=== PATIENT | male | born 1975 | race Caucasian/White ===

== ENCOUNTER 2022-07-03 21:40 | Emergency (ER) | payer BC ==
[2022-07-03] MEDS: Diphtheria,Pertussis(Acell),Tetanus Vaccine 0.5 ML Syringe IM ONE (22:44)
[2022-07-03] MEDS: Lidocaine 1% 5 ML VIAL INJECT ONE (22:45)
[2022-07-03] MEDS: Bacitracin Oint 1 GM U/D Packet ONE (22:49)
[2022-07-03] MEDS: Bacitracin Oint 1 GM U/D Packet TOP ONE (22:49)
== END 2022-07-03 23:01 | disposition home or self-care (01) ==
LOC: JP.ED 21:40
DX: S60.551A Superficial foreign body of right hand, initial encounter (principal); F17.210 Nicotine dependence, cigarettes, uncomplicated; Z23 Encounter for immunization; W45.8XXA Other foreign body or object entering through skin, initial encounter
CPT/HCPCS: 90471; 90715; 99282-25